=== PATIENT | female | born 1970 | race Caucasian/White ===

== ENCOUNTER 2021-08-22 11:47 | Emergency (ER) | payer MEDICARE, OTHER ==
[~2021-08-22] VITALS: Ht 152.4 cm; Wt 52.6 kg
--- NOTE | 2021-08-22 11:54 | NUR ---
TO [facility],CHANGED INTO [facility],READY FOR MD SUNG.
--- NOTE | 2021-08-22 12:08 | NUR ---
dr cisneros at bedside
[2021-08-22] MEDS ORDERED: HYDROMORPHONE 1 MG/1 ML DISP.SYRIN IV ONE (12:30)
[2021-08-22] MEDS ORDERED: IV NS 0.9% 1,000 ML IV ONE (12:30)
[2021-08-22] MEDS ORDERED: HYDROMORPHONE 1 MG/1 ML DISP.SYRIN ONE (12:35)
[2021-08-22] MEDS ORDERED: IOHEXOL-300 100 ML VIAL IV ONE (13:00)
[2021-08-22] MEDS ORDERED: CT SWABBABLE VALVE TRANS SET 1 EA INFUS.SET MC ONE (13:00)
[2021-08-22] MEDS ORDERED: IV NS 0.9% 250 ML IV ONE (13:00)
[2021-08-22] MEDS ORDERED: HYDROCODONE/APAP 5/325MG TABLET ONE (17:11)
--- NOTE | 2021-08-22 17:18 | NUR ---
IV removed. Catheter intact and site benign. Pressure and 4x4 applied to site. No bleeding noted.
--- NOTE | 2021-08-22 17:21 | NUR ---
Patient discharged to home in stable condition. Written and verbal after care instructions given. Patient verbalizes understanding of instruction.
[2021-08-22 17:22] VITALS: BP 110/52
--- NOTE | 2021-08-22 17:22 | NUR ---
instructed not to drive. 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
[2021-08-22] MEDS ORDERED: HYDROCODONE/APAP 5/325MG TABLET PO ONE (17:30)
== END 2021-08-22 17:23 | disposition home or self-care (01) ==
LOC: ER 12:00
DX: R07.81 Pleurodynia (principal); R10.11 Right upper quadrant pain; I10 Essential (primary) hypertension; E11.9 Type 2 diabetes mellitus without complications; Z87.39 Personal history of other diseases of the musculoskeletal system and connective tissue; Z87.310 Personal history of (healed) osteoporosis fracture; Z86.19 Personal history of other infectious and parasitic diseases; Z96.642 Presence of left artificial hip joint; Z88.5 Allergy status to narcotic agent; Z88.8 Allergy status to other drugs, medicaments and biological substances; Z60.2 Problems related to living alone
CPT/HCPCS: 36415; 71260; 74177; 84702; 96361; 96374; 99285; J1170; J7030; J7050; Q9967